=== PATIENT | female | born 1975 | race Caucasian/White ===

== ENCOUNTER 2020-12-06 12:13 | Emergency (ER) | payer OTHER, SELFPAY ==
[2020-12-06 12:20] VITALS: BP 179/109; PULSE 86; RESP 14; TEMP 36.2; O2SAT 97; BMI 36.0
--- NOTE | 2020-12-06 12:32 | HMH.EDUTC ---
[facility] [place] Clinical Impression: Exposure to COVID-19 virus Disposition: Home, Self-Care Condition on Discharge: Good Instructions: Preventing the Spread of Coronavirus Discharge Instructions Prescriptions: Ondansetron [Ondansetron Odt 8mg Tab] 8 mg PO Q8HP PRN 10 Days #30 tab PRN Reason: Nausea Transmission Status: Pending to [facility] Albuterol Sulfate [Proventil-HFA 90mcg/puff Inh] 2 puffs IH QIDP PRN 30 Days #1 inh PRN Reason: Wheezing Transmission Status: Pending to [facility] Referrals: PCP,No [Primary Care Provider] - Time of Disposition: 12:51 Medical Decision Making - Davis Inquiry Pt receiving controlled substance: No Vital Signs: 12/06/20 12:20 Temperature 97.2 F L Temperature Source Oral Pulse Rate [Right Brachial] 86 Respiratory Rate 14 Blood Pressure [Right Arm] 179/109 H Blood Pressure Mean [Right Arm] 132 Blood Pressure Source [Right Arm] Automatic Cuff Blood Pressure Position [Right Arm] Sitting 02 Sat by Pulse Oximetry 97 Oxygen Delivery Method Room Air Orders (Tests/Meds): ORDERS Category Date Time Status Covid-19 Nasal PCR Sendout P&C Routine Lab 12/06/20 12:20 Ordered [facility] - General Stated complaint: test was + at work, covid re test Time Seen by Provider: 12/06/20 12:32 - History of Present Illness Provider Complaint: Rapid COVID test + at [facility]. Needs PCR confirmation. Has headache, body aches, nausea. No fever. Onset (ago): day(s) (1) Associated symptoms: headaches, nausea/vomiting Treatments prior to arrival: none - Related Data Home Medications Medication Instructions Recorded Confirmed raNITIdine HCl [Zantac] 150 mg PO BID 02/17/18 02/17/18 Previous Rx's Medication Instructions Recorded Albuterol Sulfate [Proair Hfa 2 puffs IH Q4HP PRN #1 inh 08/23/19 90mcg/puff Inh] Azithromycin [Zithromax 250mg 250 mg PO DAILY #4 tab 08/23/19 tab] Benzonatate [Tessalon Perle 100mg 100 mg PO TIDP PRN #20 cap 08/23/19 Cap] Albuterol Sulfate [Proventil-HFA 2 puffs IH QIDP PRN 30 Days #1 inh 12/06/20 90mcg/puff Inh] Ondansetron [Ondansetron Odt 8mg 8 mg PO Q8HP PRN 10 Days #30 tab 12/06/20 Tab] Allergies Allergy/AdvReac Type Severity Reaction Status Date / Time tramadol Allergy Intermediate I-HIVES Verified 02/17/18 09:27 Penicillins Allergy Unknown Verified 02/17/18 09:27 morphine AdvReac Mild NA-NAUSEA/V Verified 02/17/18 09:27 OMITING [facility] History - Hepatitis A Screen Attestation statement:: This patient has been screened for Hepatitis A risk factors. I have reviewed the patient's past medical history: Yes Medical History: Denies:: Cancer, Diabetes Mellitus Type 1, Diabetes Mellitus Type 2 Laterality Cases: Bilateral: Tonsillectomy - Social History Smoking Status: Current every day smoker Tobacco Type: cigarettes Alcohol Intake: never Occupational Status: employed Housing: house Household Members: family ROS Obtained: Yes All systems reviewed & no additional complaints - Constitutional Constitutional: Reports body ache, Reports headache(s) - Gastrointestinal Gastrointestingal: Reports: nausea Physical Exam - General General appearance: alert, in no apparent distress - Head Head exam: normocephalic - Eye Eye exam: Present: PERRL - ENT ENT exam: Present: normal oropharynx - Respiratory Respiratory exam: Present: normal lung sounds bilaterally - Cardiovascular Cardiovascular exam: Present: regular rate, normal rhythm - Neurological Exam Neurological exam: Present: alert, oriented X3 - Psychiatric Psychiatric exam: Present: normal affect, normal mood - Skin Skin exam: Present: warm, dry, intact
[2020-12-06 12:53] VITALS: BP 179/109; PULSE 86; RESP 14; TEMP 36.2; O2SAT 97
[2020-12-07 10:54] LABS: Covid-19 Nasal PCR Sendout P&C POSITIVE
--- NOTE | 2020-12-07 10:55 | PC.NURSE ---
PATIENT NOTIFIED OF POSITIVE COVID RESULTS
== END 2020-12-06 13:00 | disposition home or self-care (01) ==
PROVIDERS: Emergency Provider Physician Assistant
DX: U07.1 COVID-19 (principal); F17.210 Nicotine dependence, cigarettes, uncomplicated
CPT/HCPCS: 99202; G0463; U0004

== ENCOUNTER 2021-02-17 17:32 | Emergency (ER) | payer OTHER, SELFPAY ==
[2021-02-17 17:52] VITALS: BP 135/90; PULSE 86; RESP 14; TEMP 36.7; O2SAT 95; BMI 36.0
--- NOTE | 2021-02-17 17:53 | XR_ITS ---
PROCEDURE: XR CHEST 2V CLINICAL HISTORY: cough/congestion COMPARISON: CR XR CHEST 2V from 08/23/2019 FINDINGS: The cardiomediastinal silhouette and pulmonary vascularity are within normal limits. The lungs are clear without infiltrates, suspicious nodules, or pleural effusions. ACDF of the lower cervical spine is visualized. Degenerative changes of the visualized thoracic spine. IMPRESSION: No acute cardiopulmonary process. Dictated by: Kelly Zazueta 02/18/2021 09:14 Kelly Zazueta in OV 02/18/2021 09:14
--- NOTE | 2021-02-17 18:02 | HMH.EDUTC ---
[facility] [place] Clinical Impression: Bronchitis Disposition: Home, Self-Care Condition on Discharge: Good Instructions: Acute Bronchitis, DI for Cough -- Adult Additional Instructions: ? Start antibiotic today. Be sure to complete entire prescription even if feeling better ? Monitor temp. Tylenol every 4 hours as needed and / or ibuprofen every 6 hours as needed ( As long as your primary care physician has told you that it ok to take both. For fever/aches/pains ER if no less than 101 despite Tylenol or Motrin ? Humidifier/vaporizer or hot steamy shower ? Inhaler every 4-6 hours as needed like we discussed. If unsure how to use it, ask pharmacist to demonstrate how. Should help open airways and improve cough, wheezing, and shortness of breath ? Mucinex during the day for your cough and cough suppressant only at night. Be sure to drink lots of water. Insurance may not cover a prescriptions for mucinex. Might be cheaper to get 400mg tablets and take 2 tablet in the morning, mid-day and evening with lots of water. You may call back tomorrow for the official reading of your xray *Start steroid tomorrow. Helps with inflammation therefore, cough and wheezing. Follow directions on the package. Reviewed side effects. Patient reports taking them before. Follow up IMMEDIATELY for new or worsening of symptoms OR no noticeable improvement over the next 48-72 hours. 911 immediately for any life threatening symptoms such as chest pain or difficulty breathing Prescriptions: Albuterol Sulfate [Proventil-HFA 90mcg/puff Inh] 1 - 2 puffs IH Q4HP PRN #1 inh PRN Reason: Shortness Of Breath Transmission Status: Received by [facility] predniSONE [Deltasone 10mg tablet] 10 mg PO BID 5 Days #10 tab Transmission Status: Received by [facility] guaiFENesin [Mucinex 600mg tablet] 600 mg PO BID PRN #20 tab.er.12h PRN Reason: Congestion Transmission Status: Received by [facility] Azithromycin [Z-Gael 250mg Tab] 250 mg PO DIRECTED #6 tab Transmission Status: Received by [facility] Referrals: PCP,No [Primary Care Provider] - As needed Forms: Work/School Release Time of Disposition: 18:59 Medical Decision Making - Davis Inquiry Pt receiving controlled substance: No Davis was queried for this patient: No Vital Signs: 03/29/21 17:52 02/17/21 18:15 Temperature 98.1 F 98 F Temperature Source Oral Pulse Rate 81 Pulse Rate [Right Radial] 86 Respiratory Rate 14 16 Blood Pressure 129/87 Blood Pressure [Right Arm] 135/90 Blood Pressure Mean [Right Arm] 105 Blood Pressure Source [Right Arm] Automatic Cuff Blood Pressure Position [Right Arm] Sitting 02 Sat by Pulse Oximetry 95 Oxygen Delivery Method Room Air Orders (Tests/Meds): ED MEDICATIONS Discontinued Medications Generic Name Dose Route Start Last Admin Trade Name Freq PRN Reason Stop Dose Admin Ceftriaxone Sodium 1 gm 02/17/21 18:57 02/17/21 18:55 Ceftriaxone 1gm Vial IM 02/17/21 18:58 1 gm ONCE ONE Administration Protocol Lidocaine HCl 0 ml 02/17/21 18:57 02/17/21 19:26 Lidocaine 1% 5ml Pf Vial IM 02/17/21 18:58 2 ml ONCE ONE Administration Methylprednisolone Sodium Succinate 125 mg 02/17/21 18:57 Methylprednisolone Sod Succ 125mg Vial IM 02/17/21 18:58 ONCE ONE ORDERS Category Date Time Status XR chest 2V Stat Exams 02/17/21 17:53 Taken - Radiology Data #1 Image(s): Chest Image Reviewed: Yes I reviewed the patient's radiology image ? bronchitis Medical Decision Narrative: Patient states that she is allergic to PCN but has taken rocephin multiple times before without reactions or complications [facility] [place] HPI - General Stated complaint: SOB,Cough,BATRES,Ears,Body Pain Time Seen by Provider: 02/17/21 18:02 Mode of Arrival: Ambulatory Source of Information: Patient Limitations: No Limitations Description of Symptoms (Recalled from Triage Doc. by RN): Pt complains of SOA,
[2021-02-17 18:15] VITALS: BP 129/87; PULSE 81; RESP 16; TEMP 36.6
== END 2021-02-17 19:17 | disposition home or self-care (01) ==
PROVIDERS: Emergency Provider Nurse Practitioner
DX: J20.9 Acute bronchitis, unspecified (principal); Z86.16 Personal history of COVID-19; F17.210 Nicotine dependence, cigarettes, uncomplicated
CPT/HCPCS: 71046; 99202; G0463

== ENCOUNTER → 2021-03-10 16:29 | Outpatient (CLI) | payer OTHER, SELFPAY | PROVIDERS: Visit Provider Nurse Practitioner Family | DX: Z02.1 Encounter for pre-employment examination (principal) ==

== ENCOUNTER 2022-06-06 19:45 | Emergency (ER) | payer OTHER, SELFPAY ==
[2022-06-06 19:45] VITALS: BP 190/106; PULSE 101; RESP 22; TEMP 36.9; O2SAT 98; BMI 36.8
--- NOTE | 2022-06-06 19:46 | ECG_ITS ---
APPROVED REPORT Exam: Resting ECG HR:90 bpm ECG Measurements Heart Rate 90 AXES SD 168 P 62 QRSd 98 QRS -8 QT 365 T 60 QTc 413 Conclusion SINUS RHYTHM NORMAL ECG UNCONFIRMED REPORT Electronically signed by : Maulik Bee MD 06/07/2022 16:24:49
[2022-06-06 20:01] LABS: Coronavirus 19, PCR Not Detected (NotDetected); Influenza A, PCR Not Detected (NotDetected); Influenza B, PCR Not Detected (NotDetected)
--- NOTE | 2022-06-06 20:09 | XR_ITS ---
PROCEDURE INFORMATION: Exam: XR Chest Exam date and time: 06/06/2022 9:28 PM Age: 46 years old Clinical indication: Pain; Chest pressure; Additional info: Dry cough, chest pain, palpitations TECHNIQUE: Imaging protocol: Radiologic exam of the chest. Views: 2 views. COMPARISON: CR XR CHEST 2V 02/17/2021 6:16 PM FINDINGS: Lungs: Unremarkable. No consolidation. Pleural spaces: Unremarkable. No pleural effusion. No pneumothorax. Heart/Mediastinum: Unremarkable. No cardiomegaly. Bones/joints: Unremarkable. IMPRESSION: No acute findings.
[2022-06-06 20:35] VITALS: BP 142/86; PULSE 92; RESP 12; O2SAT 100
[2022-06-06 20:47] LABS: Basophils % 0.4 % (0.1-2.0); Eosinophils # 0.1 K/mm3 (0.0-0.4); Eosinophils % 2.3 % (0.1-12.0); Hematocrit 34.3 % (37.0-47.0); Lymphocytes # 1.8 K/mm3 (0.7-4.5); Lymphocytes % 33.7 % (10-50); Mean Corpuscular Hemoglobin 30.4 pg (27.0-31.2); Mean Corpuscular Volume 95.1 fl (81-99); Mean Platelet Volume 8.1 fl (7.4-10.4); Monocytes # 0.2 K/mm3 (0.1-1.0); Monocytes % 4.4 % (1.7-9.3); Neutrophils # 3.2 K/mm3 (1.8-7.8); Neutrophils % 59.2 % (37.0-80.0); Platelet Count 338 K/mm3 (142-424); Red Blood Count 3.61 M/mm3 (4.20-5.40); Red Cell Distribution Width 15.6 % (11.5-17.5); White Blood Count 5.3 K/mm3 (4.8-10.8)
[2022-06-06 21:10] LABS: Alanine Aminotransferase 18 U/L (12-78); Albumin Level 3.7 g/dl (3.5-5.0); Alkaline Phosphatase 117 U/L (38-126); Anion Gap 10.7 mEq/L (5-15); Aspartate Amino Transferase 31 U/L (14-36); Bilirubin,Unconjugated 0.3 mg/dL (0.0-1.1); Blood Urea Nitrogen 6 mg/dl (7-17); Calcium 8.6 mg/dl (8.4-10.2); Carbon Dioxide 29 mmol/L (22.0-30.0); Chloride 102 mmol/L (98-107); Creatinine Clearance Estimated 193 mL/min (50-200); Estimated Glomerular Filt Rate 107 ml/min (>60); GFR (African American) 129 ML/MIN (>60); Glucose 111 mg/dl (74-100); Magnesium 1.7 mg/dl (1.6-2.3); Potassium 3.7 mmoL/L (3.5-5.1); Sodium 138 mmol/L (136-145); Total Protein,Serum 6.6 g/dl (6.3-8.2)
[2022-06-06 21:11] LABS: Bilirubin,Total < 0.1 mg/dl (0.2-1.3)
[2022-06-06 21:15] LABS: C-Reactive Protein 2.4 mg/L (0-4)
[2022-06-06 21:21] LABS: Erythrocyte Sedimentation Rate 33 mm/hr (0-20); NT Pro Brain Natriuretic Pep. 343 pg/mL (0-125)
[2022-06-06 21:28] LABS: Procalcitonin 0.034 ng/mL (0.0-2.0); Troponin I < 0.01 ng/ml (0.00-0.034)
[2022-06-06 21:50] LABS: Bilirubin,Direct < 0.1 mg/dl (0.0-0.4)
[2022-06-06 22:00] VITALS: BP 151/92; RESP 11; O2SAT 100
[2022-06-06 22:30] VITALS: BP 146/94; PULSE 85; RESP 10; O2SAT 98
--- NOTE | 2022-06-06 22:33 | PC.NURSE ---
PT UPDATED. PT STATES ALL CHEST PAIN IS RELIEVED. PT REPORTS LEFT LOWER JAW PAIN AND SWELLING AND REQUESTS MEDICATION FOR PAIN.
--- NOTE | 2022-06-06 23:26 | HMH.EDCP ---
ED Disposition Clinical Impression: Obesity (BMI 30-39.9), Tobacco use Chest pain Qualifiers: Chest pain type: precordial pain Qualified Code(s): R07.2 - Precordial pain Hypertension Qualifiers: Hypertension type: primary hypertension Qualified Code(s): I10 - Essential (primary) hypertension Disposition: Home, Self-Care Condition on Discharge: Good Instructions: DI for Chest Pain Additional Instructions: see card wednesday am and recheck if needed before wednesday Prescriptions: Aspirin [Aspirin 81mg EC Tab] 81 mg PO DAILY #30 tab Transmission Status: Pending to [facility] Bisoprolol Fumarate [Bisoprolol 5mg Tablet] 5 mg PO DAILY #30 tab Transmission Status: Pending to [facility] cephALEXin [cephALEXin 500mg capsule*] 500 mg PO TID #30 cap Transmission Status: Pending to [facility] Isosorbide Mononitrate [Imdur 30mg ER tablet] 30 mg PO DAILY #30 tab Transmission Status: Pending to [facility] Referrals: ProviderNichole MD [Primary Care Provider] - Stephon More MD [Staff Physician] - - Critical Care Critical Care Time: No Attestation: On 06/06/22, the high probability of a clinically significant, sudden or life threatening deterioration of the following system(s) required my full and direct attention, intervention and personal management. The time I documented below is in addition to time spent performing reported procedures but includes the following listed in this critical care notation. Medical Decision Making - Medical Records Medical records reviewed: Yes: I reviewed the patient's medical records. - Davis Inquiry Pt receiving controlled substance: No Vital Signs: 06/06/22 19:45 06/06/22 20:35 06/06/22 22:00 Temperature 98.5 F Temperature Source Oral Pulse Rate 92 H Pulse Rate [Right] 101 H Respiratory Rate 22 12 11 L Blood Pressure 142/86 H 151/92 H Blood Pressure [Right Arm] 190/106 H Blood Pressure Mean 111 Blood Pressure Mean [Right Arm] 134 Blood Pressure Source [Right Arm] Manual Cuff/ Auscultation 02 Sat by Pulse Oximetry 98 100 100 Oxygen Delivery Method Room Air Room Air 06/06/22 22:30 Temperature Temperature Source Pulse Rate 85 Pulse Rate [Right] Respiratory Rate 10 L Blood Pressure 146/94 H Blood Pressure [Right Arm] Blood Pressure Mean Blood Pressure Mean [Right Arm] Blood Pressure Source [Right Arm] 02 Sat by Pulse Oximetry 98 Oxygen Delivery Method Room Air - Lab Data Lab results reviewed: Yes: I reviewed the patient's lab results. Lab Results 06/06/22 19:50: SARS-CoV-2 (PCR) Not detected, Influenza A Untype (PCR) Not detected, Influenza Type B (PCR) Not detected 06/06/22 20:31: WBC 5.3, RBC 3.61 L, Hgb 11.0 L, Hct 34.3 L, MCV 95.1, MCH 30.4, MCHC 32.0, RDW 15.6, Plt Count 338, MPV 8.1, Neut % (Auto) 59.2, Lymph % (Auto) 33.7, Ray % (Auto) 4.4, Eos % (Auto) 2.3, Baso % (Auto) 0.4, Neut # (Auto) 3.2, Lymph # (Auto) 1.8, Ray # (Auto) 0.2, Eos # (Auto) 0.1, Baso # (Auto) 0.0, ESR 33 H 06/06/22 20:31: Troponin I < 0.01, C-Reactive Protein 2.4, Procalcitonin 0.034 06/06/22 20:31: Sodium 138, Potassium 3.7, Chloride 102, Carbon Dioxide 29, Anion Gap 10.7, BUN 6 L, Creatinine 0.60, Estimated Creat Clear 193, Estimated GFR 107, Est GFR ( Amer) 129, Glucose 111 H, Calcium 8.6, Magnesium 1.7, Total Bilirubin < 0.1 L, Direct Bilirubin < 0.1, Conjugated Bilirubin 0.0, Indirect Bilirubin 0.0, Unconjugated Bilirubin 0.3, AST 31, ALT 18, Alkaline Phosphatase 117, NT-Pro-B Natriuret Pep 343 H, Total Protein 6.6, Albumin 3.7 06/06/22 23:09: Troponin I < 0.01 Result diagrams: 06/06/22 20:31 06/06/22 20:31 Orders (Tests/Meds): ED MEDICATIONS Discontinued Medications Generic Name Dose Route Start Last Admin Trade Name Freq PRN Reason Stop Dose Admin Aspirin 324 mg 06/06/22 20:28 06/06/22 20:41 Aspirin 81mg Chewable Tablet PO 06/06/22 20:29 324 mg ONCE ONE Administration Cephalexin H
[2022-06-07 00:21] LABS: Troponin I < 0.01 ng/ml (0.00-0.034)
--- NOTE | 2022-06-07 00:33 | PC.NURSE ---
Dr. More paged
--- NOTE | 2022-06-07 00:35 | PC.NURSE ---
speaking with Dr. More
[2022-06-07 00:44] VITALS: BP 146/94; PULSE 85; RESP 18; TEMP 36.9; O2SAT 98
== END 2022-06-07 00:47 | disposition home or self-care (01) ==
PROVIDERS: Emergency Provider Emergency Medicine
DX: R07.2 Precordial pain (principal); E66.9 Obesity, unspecified; Z68.30 Body mass index [BMI] 30.0-30.9, adult; Z72.0 Tobacco use; I10 Essential (primary) hypertension
CPT/HCPCS: 71046; 80048; 80076; 83735; 83880; 84145; 84484; 85025; 85651; 86140; 93005; 96361; 96374; 99284; C9803; U0003; U0005

== ENCOUNTER → 2022-06-08 09:47 | Outpatient (CLI) | payer OTHER, SELFPAY | PROVIDERS: Visit Provider Physician Assistant | DX: R00.2 Palpitations (principal) | CPT/HCPCS: 93270 ==

== ENCOUNTER → 2022-06-18 06:49 | Outpatient (CLI) | payer OTHER, SELFPAY ==
--- NOTE | 2022-06-18 06:50 | CA_ITS ---
APPROVED REPORT EXAM: Comprehensive 2D, Doppler, and color-flow Echocardiogram Institutional Cook: Brittni Nash RT(R) Ht: 5 ft 7 in Wt: 255lbs BSA: 2.24 BP: 165/98 mmHg Indications: CP, smoker, palpitations, fatigue, edema, HTN, family history of HD 2D Dimensions LVOT 1.95 cm (M/F) 1.5-2.5 LA Volume 30.60 mL LA Volume Index 13.66 mL/m2 (M/F) 16-34 M-Mode Dimensions RVDd 3.38 cm (0.9-2.6) LA Diam 4.42 cm (1.9-4.0) LVDd 5.59 cm (3.5-5.7) Ao Diam 2.44 cm (2.0-3.7) LVDs 4.29 cm (3.5-5.7) IVSd 0.76 cm (0.6-1.1) PWd 0.76 cm (0.6-1.1) EF (Teich) 46.00% FS 23.30% EDV (Teich) 153.00 mL ESV (Teich) 82.60 mL LV Diastology E Decel Time 253.00 (160-240 msec) E/A Ratio 1.1 MED E' 6.40 (< 7 cm/sec) E'/MED E' Ratio 11.19 (>14) LAT E' 9.70 (<10 cm/sec) E/LAT E' Ratio 7.38 (>14) Mitral Valve MV E Max Gil. 72.00 (40-130 cm/s) MV A Velocity 63.00 (40-130 cm/s) E/A Ratio 1.14 MV Decel. Time 253.00 (160-240 ms) MV PHT 74.00 ms Tricuspid Valve TR P. Velocity 236.00 cm/s RAP Estimate 10.00 mmHg RVSP 32.20 mmHg Left Ventricle Left atrium is mildly enlarged, left ventricle is normal size, mild concentric left ventricular hypertrophy, estimated ejection fraction 55% with no regional wall motion abnormality, diastolic parameters are inconclusive. Right Ventricle Right atrium and right ventricle are mildly enlarged with normal contractility. Aortic Valve Aortic valve is minimally thickened and fibrosed there is no aortic stenosis or aortic insufficiency. Mitral Valve Mitral valve grossly normal, there is trace mitral regurgitation. Tricuspid Valve Tricuspid valve grossly normal, there is trace tricuspid regurgitation, tricuspid regurgitation jet velocity is inadequate for calculation of the right ventricular systolic pressure. Pulmonic Valve Pulmonic valve is poorly visualized. Great Vessels Aortic root is normal size. Inferior vena cava is poorly visualized. Pericardium No significant pericardial effusion noted. Conclusion 1. Mild biatrial enlargement, normal left ventricular size, mild concentric left ventricular hypertrophy, estimated ejection fraction 55% with no regional wall motion abnormality, diastolic parameters are inconclusive. 2. Trace mitral and tricuspid regurgitation. 3. No significant pericardial effusion noted. 4. Inferior vena cava is poorly visualized. Electronically signed by : Taiwo Moreno MD 06/19/2022 15:24:53
--- NOTE | 2022-06-18 06:50 | NM_ITS ---
APPROVED REPORT Exam: Nuclear Stress Test Indication: chest pain..short of breath..fatigue Patient Location: Outpatient Stress Tech: Rita PARTIDA Tech:YANIRA Romeo RT(R)(N) Ht: 5 ft 7 in Wt: 250 lbs Bra Size: 38c HR: 56 bpm BP: 121/75 mmHg BSA: 2.22 m2 TID: 1.05 BMI: 39.1 History: chest pain..short of breath..fatigue Procedure: Patient exercised on Hugo protocol 5:39 minutes and sec, resting heart rate 56 bpm, resting blood pressure 121/75 mmHg, with exercise maximum heart rate achived was 129 bpm which is 75 % of the maximum predicted heart rate and blood pressure was 179/74 mmHg. Test was stopped due to sob. Patient denied any complaint of chest pain. Patient has Adequate exercise capacity, achieved 7.0 METs of workload on treadmill, the blood pressure response to exercise was Adequate. Electrocardiogram Resting electrocardiogram shows sinus rhythm, with exercise there is less than 1.[address] segment depression noted from the baseline EKG. The EKG portion of the exercise Myoview is nondiagnostic as patient did not achieve the target heart rate. Cardiac Stress and Resting SPECT Images: Cardiac Stress and Resting SPECT images were obtained using technetium 99m Myoview 30.2 mCi stress and 10.14 mCi at rest. Gated SPECT for analysis of segmental wall motion and calculation of the ejection fraction also done. Prone images were also obtained. Cardiac stress and rest SPECT images show uniform myocardial activity without segmental perfusion abnormality, computer derived ejection fraction is 49% with no regional wall motion abnormality, right ventricle is normal size and contractility. Conclusion: 1. The EKG portion of the exercise Myoview was nondiagnostic as patient did not achieve the target heart rate, patient has adequate exercise capacity achieved 7 METS of workload on treadmill, the blood pressure response to exercise was adequate, there was no exercise-induced chest discomfort. 2. No scintigraphic evidence of reversible ischemia seen, computer derived ejection fraction is 49% with no regional wall motion abnormality, right ventricle is normal size and contractility. Electronically signed by : Taiwo Moreno MD 06/19/2022 13:03:57
--- NOTE | 2022-06-18 06:50 | CA_ITS ---
APPROVED REPORT Exam: Exercise Treadmill Technologist: Rita Logan, Ht: 5 ft 7 in Wt: 255 lbs BSA: 2.24 m2 HR: 57 bpm BP: 132/80 mmHg Rhythm: sinus heidi, otherwise normal Medical History Medical History: HTN Medications: Aspirin,,,,, Prilosec,,,,, Cephalaxin,,,,, Albuterol,,,,, BisOPROLOL Fumarate,,,,, Isosorbide Monoitrate,,,,, Cardiac Risk Factors: HTN, FHX of CAD, Smoking Stress Test Details Test: Hugo HR Resting HR: 56 bpm Max Heart Rate (APMHR): 172.655800 bpm Max HR Achieved: 129 bpm Target HR (85% APMHR): 146.031560 bpm % of APMHR: 75.00 Recovery HR: 99 bpm BP Resting BP: 121/75 mmHg Max BP: 179/74 mmHg Recovery BP: 179.0/74.0 mmHg ECG Resting ECG: sinus heidi, otherwise normal Clinical Exercise duration: 05:39 min Highest Stage Achieved: Exercise capacity: 7.0 METs Stress ECG Conclusion During hugo protocol pt exercised total of 5:39 into stage 2. Dyspnea noted, no CP. Occasional PAC and PVC. Allowing for motion artifact, ST response to exercise is within normal. Normal GXT to HR achieved. Blunted HR response due to beta charlie, last taken 8 hours ago. Myoview images reported separately. Test Summary REST . . . . . . . Sitting REST . . . . . . . Standing REST 04:37 0.0 0.0 56 . 121/ 75 . . Stage 1 01:00 10.0 1.7 89 . . . . Stage 1 02:00 10.0 1.7 102 . . . . Stage 1 03:00 10.0 1.7 107 . 164/ 80 . . Stage 2 01:00 12.0 2.5 116 . . . . Stage 2 02:00 12.0 2.5 126 . . . . Stage 2 02:39 12.0 2.5 126 . . . Stop exercise at 05:39 RECOVERY 01:00 0.0 0.0 99 . . . . RECOVERY 02:00 0.0 0.0 75 . . . . RECOVERY 03:00 0.0 0.0 68 . . . . RECOVERY 04:00 0.0 0.0 69 . 179/ 74 . . RECOVERY 05:00 0.0 0.0 69 . 179/ 74 . . RECOVERY 06:00 0.0 0.0 67 . 138/ 73 . . RECOVERY 06:19 0.0 0.0 66 . 138/ 73 . . Electronically signed by : Taiwo Moreno MD 06/19/2022 13:01:44
== END ==
PROVIDERS: Visit Provider Nurse Practitioner Family
DX: R07.89 Other chest pain (principal); R60.0 Localized edema
CPT/HCPCS: 78452; 93017; 93306; A9502

== ENCOUNTER → 2022-10-13 14:30 | Outpatient (CLI) | payer OTHER, SELFPAY ==
[2022-10-13 18:13] LABS: Basophils % 0.5 % (0.1-2.0); Eosinophils # 0.3 K/mm3 (0.0-0.4); Eosinophils % 3.8 % (0.1-12.0); Hematocrit 33.5 % (37.0-47.0); Hemoglobin 10.8 g/dL (12.2-16.2); Lymphocytes # 2.4 K/mm3 (0.7-4.5); Mean Corpuscular HGB Conc 32.2 g/dL (31.8-35.4); Mean Corpuscular Hemoglobin 31.1 pg (27.0-31.2); Mean Corpuscular Volume 96.5 fl (81-99); Mean Platelet Volume 8.9 fl (7.4-10.4); Monocytes # 0.3 K/mm3 (0.1-1.0); Monocytes % 4.2 % (1.7-9.3); Neutrophils # 3.8 K/mm3 (1.8-7.8); Neutrophils % 55.6 % (37.0-80.0); Platelet Count 350 K/mm3 (142-424); Red Blood Count 3.47 M/mm3 (4.20-5.40); Red Cell Distribution Width 15.3 % (11.5-17.5); White Blood Count 6.8 K/mm3 (4.8-10.8)
[2022-10-13 18:19] LABS: Alanine Aminotransferase 23 U/L (12-78); Albumin/Globulin Ratio 1.6 (1.1-1.8); Alkaline Phosphatase 110 U/L (38-126); Anion Gap 15.2 mEq/L (5-15); Aspartate Amino Transferase 26 U/L (14-36); Blood Urea Nitrogen 8 mg/dl (7-17); Calcium 9.4 mg/dl (8.4-10.2); Carbon Dioxide 29 mmol/L (22.0-30.0); Chloride 97 mmol/L (98-107); Estimated Glomerular Filt Rate 89 ml/min (>60); GFR (African American) 108 ML/MIN (>60); Globulin 2.5 g/dL (1.3-3.2); Glucose 112 mg/dl (74-100); Potassium 4.2 mmoL/L (3.5-5.1); Sodium 137 mmol/L (136-145); Total Protein,Serum 6.5 g/dl (6.3-8.2)
[2022-10-13 18:22] LABS: Bilirubin,Total < 0.1 mg/dl (0.2-1.3)
[2022-10-20 00:07] LABS: ALT (SGPT) P5P 21 IU/L (0-40); Alpha 2-Macroglobulins, Qn 170 mg/dL (110-276); Apolipoprotein A-1 130 mg/dL (116-209); Bilirubin, Total 0.1 mg/dL (0.0-1.2); Fibrosis Score 0.03 (0.00-0.21); GGT 17 IU/L (0-60); Haptoglobin 201 mg/dL (42-296); Necroinflammat Activity Grade A0-No activity (.); Necroinflammat Activity Score 0.06 (0.00-0.17)
[2022-10-25 21:53] LABS: HIV Screen 4th Generation wRfx Non Reactive; Hep A Ab, Total Negative
[2022-10-25 21:54] LABS: Hep B Core Ab, Total Negative; Hepatitis B Surface Antigen Negative
[2022-10-25 21:55] LABS: Hep B Surface Ab, Qual Negative; Hepatitis C Antibody 0.1
== END ==
PROVIDERS: PCP Emergency Medicine; Visit Provider Emergency Medicine
DX: Z11.4 Encounter for screening for human immunodeficiency virus [HIV]; B34.8 Other viral infections of unspecified site
CPT/HCPCS: 80053; 81596; 85025; 86703; 86704; 86706; 86708; 87340; 87380; 87522; 87902; G0432

== ENCOUNTER 2023-02-17 13:57 | Emergency (ER) | payer OTHER, SELFPAY ==
--- NOTE | 2023-02-17 14:03 | EXP.UTC ---
Discharge Plan Disposition Patient Disposition: Home, Self-Care Condition: Good Prescriptions Prescriptions: New clindamycin HCl 300 mg capsule 300 mg PO Q8H Qty: 30 0RF ibuprofen [IBU] 800 mg tablet 800 mg PO Q8HP PRN (Reason: Moderate Pain) Qty: 30 0RF ondansetron 4 mg Tablet,Disintegrating 4 mg PO Q8H PRN (Reason: Nausea) Qty: 12 0RF No Action omeprazole 40 mg capsule,delayed release(DR/EC) 40 mg PO DAILY Qty: 30 5RF isosorbide mononitrate 30 mg tablet extended release 24 hr See Rx Instructions .ROUTE .COMPLEX Qty: 30 1RF Dose Instruction: TAKE 1 TABLET BY MOUTH ONCE DAILY Rx Instructions: TAKE 1 TABLET BY MOUTH ONCE DAILY bisoprolol fumarate 10 mg tablet 10 mg PO DAILY Qty: 90 1RF hydrochlorothiazide 25 mg tablet 25 mg PO DAILY Qty: 90 1RF albuterol sulfate 200 PUFFS HFA aerosol inhaler 2 puffs IH QIDP PRN (Reason: Wheezing) 30 Days Qty: 1 0RF aspirin 81 MG tablet,delayed release (DR/EC) 81 mg PO DAILY Qty: 30 0RF Referrals Follow up/Referrals: Asim Lopez MD [Primary Care Provider] - See instructions Activity Restrictions/Add. Instructions Additional Instructions/Restrictions: Take tylenol or ibuprofen for pain or fever. Take ibuprofen for pain. I sent in a prescription to your pharmacy. Follow up with your regular doctor. GO TO THE ER FOR ANY WORSENING SYMPTOMS Follow up with your dentist. Clinical Impressions Clinical Impression: Abscess, dental Stand Alone Forms Stand Alone Forms: Work/School Release Instructions Patient Instructions: Tooth Abscess, DI for Tooth Abscess Discharge ED Provider: Clement Briscoe [facility] General Stated complaint: Possible tooth abcess Time Seen by Provider: 02/17/23 14:03 History of Present Illness Provider Complaint: She states that for the past 4 days she has had worsening dental pain and swelling of her left lower gums around a decayed tooth. Related Data Previous Rx's Medication Instructions Recorded albuterol sulfate 90 mcg/actuation 2 puffs inhalation QIDP PRN 12/06/20 aerosol inhaler Wheezing 30 days #1 inh aspirin 81 mg tablet,delayed 81 mg PO DAILY #30 tabs 06/07/22 release omeprazole 40 mg capsule,delayed 40 mg PO DAILY #30 caps 06/08/22 release isosorbide mononitrate 30 mg See Rx Instructions .Route 10/14/22 tablet,extended release 24 hr .COMPLEX #30 tabs bisoprolol fumarate 10 mg tablet 10 mg PO DAILY #90 tabs 02/17/23 clindamycin HCl 300 mg capsule 300 mg PO Q8H #30 caps 02/17/23 hydrochlorothiazide 25 mg tablet 25 mg PO DAILY #90 tabs 02/17/23 ibuprofen 800 mg tablet (IBU) 800 mg PO Q8HP PRN Moderate Pain 02/17/23 #30 tabs ondansetron 4 mg disintegrating 4 mg PO Q8H PRN Nausea #12 tabs 02/17/23 tablet Allergies Allergy/AdvReac Type Severity Reaction Status Date / Time tramadol Allergy Intermediate I-HIVES Verified 10/13/22 14:34 Penicillins Allergy Unknown Verified 10/13/22 14:34 morphine AdvReac Mild NA-NAUSEA/V Verified 10/13/22 14:34 OMITING PFSH PFSH Disclaimer: The information contained in this section may have been updated after the patient was seen, as this information can be updated by other users. Social History Smoking Status: Current every day smoker tobacco type: cigarettes packs per day: 1 alcohol intake: never current occupational status: other Travel in the last 8 weeks: Inside the [place] household members: family housing: house current occupational exposures/hazards: No ROS Obtained: Yes All systems reviewed & no additional complaints except as documented Constitutional Constitutional: Denies chills and Denies fever(s) Eyes Eyes: Denies eye discharge ENT Ears, Nose, Mouth, and Throat: Reports as per HPI, Denies dizziness, Denies otalgia and Denies sore throat Cardiovascular Cardiovascular: Denies chest pain Respiratory Respiratory: Jian
[2023-02-17 14:14] VITALS: BP 164/81; PULSE 82; RESP 18; TEMP 36.6; O2SAT 99; BMI 41.3
[2023-02-17 14:53] VITALS: BP 164/81; PULSE 82; RESP 18; TEMP 36.6; O2SAT 99
== END 2023-02-17 14:53 | disposition home or self-care (01) ==
PROVIDERS: Emergency Provider Nurse Practitioner Family; PCP Emergency Medicine
DX: R22.0 Localized swelling, mass and lump, head (principal); R68.84 Jaw pain
CPT/HCPCS: 96372; 99212; 99214; G0463; J0696

== ENCOUNTER 2023-03-06 08:08 | Emergency (ER) | payer OTHER, SELFPAY ==
[2023-03-06 08:25] VITALS: BP 149/86; PULSE 78; RESP 17; TEMP 36.9; O2SAT 98; BMI 45.3
--- NOTE | 2023-03-06 08:36 | EXP.UTC ---
Discharge Plan Disposition Patient Disposition: Home, Self-Care Condition: Good Prescriptions Prescriptions: New cephalexin 500 mg capsule 500 mg PO Q12H Qty: 20 0RF ibuprofen 800 mg tablet 800 mg PO TID PRN (Reason: pain) Qty: 30 0RF No Action isosorbide mononitrate 30 mg tablet extended release 24 hr 30 mg PO DAILY Rx Instructions: TAKE 1 TABLET BY MOUTH ONCE DAILY omeprazole 40 mg capsule,delayed release(DR/EC) 40 mg PO DAILY bisoprolol fumarate 10 mg tablet 10 mg PO DAILY hydrochlorothiazide 25 mg tablet 25 mg PO DAILY Referrals Follow up/Referrals: Asim Lopez MD [Primary Care Provider] - See instructions Clinical Impressions Clinical Impression: Abscess, dental Instructions Patient Instructions: DI for Dental Pain, DI for Tooth Decay, Tooth Abscess Discharge ED Provider: Julieta Jeff [facility] General Stated complaint: possible abcess in tooth, mouth pain Mode of Arrival: Ambulatory Source of Information: Patient Limitations: No Limitations Time Seen by Provider: 03/06/23 08:36 Description of Symptoms (Recalled from Triage Doc. by RN): PATIENT C/O POSSIBLE ABSCESS TO LEFT LOWER TOOTH X 3 DAYS HEENT Symptoms (Recalled from RN notes): Yes Resp Symptoms (Recalled from RN notes): No Skin Symptoms (Recalled from RN notes): No MS Symptoms (Recalled from RN notes): No Functional Status (Recalled from RN notes): WNL History of Present Illness Provider Complaint: Pt relates that 2 weeks ago she had swelling with an abscess and had an appointment with the dentist, however due to a family emergency she had to cancel that appointment. Pt state that the area is painful and swelling once more. Related Data Home Medications Medication Instructions Recorded Confirmed bisoprolol fumarate 10 mg tablet 10 mg PO DAILY Hypertension 03/06/23 03/06/23 hydrochlorothiazide 25 mg tablet 25 mg PO DAILY Hypertension 03/06/23 03/06/23 isosorbide mononitrate 30 mg 30 mg PO DAILY Hypertension 03/06/23 03/06/23 tablet,extended release 24 hr omeprazole 40 mg capsule,delayed 40 mg PO DAILY Acid reflux 03/06/23 03/06/23 release Previous Rx's Medication Instructions Recorded cephalexin 500 mg capsule 500 mg PO Q12H #20 caps 03/06/23 ibuprofen 800 mg tablet 800 mg PO TID PRN pain #30 tabs 03/06/23 Allergies Allergy/AdvReac Type Severity Reaction Status Date / Time tramadol Allergy Intermediate I-HIVES Verified 10/13/22 14:34 Penicillins Allergy Unknown Verified 10/13/22 14:34 morphine AdvReac Mild NA-NAUSEA/V Verified 10/13/22 14:34 OMITING Worker's Comp Is this a Worker's Comp case?: No PFS PFS Disclaimer: The information contained in this section may have been updated after the patient was seen, as this information can be updated by other users. Social History Smoking Status: Current every day smoker tobacco type: cigarettes packs per day: 1 alcohol intake: never current occupational status: other Travel in the last 8 weeks: Inside the [place] household members: family housing: house current occupational exposures/hazards: No ROS Obtained: Yes All systems reviewed & no additional complaints except as documented Constitutional Constitutional: Reports system reviewed and no additional complaints, except as documented Eyes Eyes: Reports system reviewed and no additional complaints, except as documented ENT Ears, Nose, Mouth, and Throat: Reports system reviewed and no additional complaints, except as documented and Reports dental pain Cardiovascular Cardiovascular: Reports system reviewed and no additional complaints, except as documented Respiratory Respiratory: Reports system reviewed and no additional complaints, except as documented Gastrointestinal Gastrointestingal: Reports system reviewed and no additional complaints, except as documented Genitourinary Female Genitour
[2023-03-06 08:56] VITALS: BP 149/86; PULSE 78; RESP 17; TEMP 36.9; O2SAT 98
== END 2023-03-06 09:00 | disposition home or self-care (01) ==
PROVIDERS: Emergency Provider Nurse Practitioner Family; PCP Emergency Medicine
DX: R22.0 Localized swelling, mass and lump, head (principal); R51.9 Headache, unspecified; F17.210 Nicotine dependence, cigarettes, uncomplicated
CPT/HCPCS: 99212; 99214; G0463

== ENCOUNTER → 2023-06-11 07:26 | Outpatient (CLI) | payer OTHER, SELFPAY ==
[2023-06-11 08:18] LABS: INR 0.93 (0.9-1.1); Prothrombin Time 10.1 seconds (10.1-12.5)
[2023-06-11 08:44] LABS: Chloride 102 mmol/L (98-107); Sodium 138 mmol/L (136-145)
[2023-06-11 08:47] LABS: Alanine Aminotransferase 20 U/L (12-78); Albumin Level 3.8 g/dl (3.5-5.0); Albumin/Globulin Ratio 1.4 (1.1-1.8); Alkaline Phosphatase 126 U/L (38-126); Aspartate Amino Transferase 25 U/L (14-36); Bilirubin,Total 0.3 mg/dl (0.2-1.3); Blood Urea Nitrogen 10 mg/dl (7-17); Calcium 9.2 mg/dl (8.4-10.2); Carbon Dioxide 31 mmol/L (22.0-30.0); Estimated Glomerular Filt Rate 106 ml/min (>60); GFR (African American) 129 ML/MIN (>60); Globulin 2.7 g/dL (1.3-3.2); Glucose 63 mg/dl (74-100); Total Protein,Serum 6.5 g/dl (6.3-8.2)
[2023-06-11 13:35] LABS: Basophils % 0.3 % (0.1-2.0); Eosinophils # 0.2 K/mm3 (0.0-0.4); Eosinophils % 3.5 % (0.1-12.0); Hemoglobin 10.5 g/dL (12.2-16.2); Lymphocytes # 1.9 K/mm3 (0.7-4.5); Lymphocytes % 37.5 % (10-50); Mean Corpuscular Hemoglobin 31.1 pg (27.0-31.2); Mean Corpuscular Volume 91.5 fl (81-99); Mean Platelet Volume 8.9 fl (7.4-10.4); Monocytes # 0.2 K/mm3 (0.1-1.0); Monocytes % 4.8 % (1.7-9.3); Neutrophils # 2.8 K/mm3 (1.8-7.8); Platelet Count 269 K/mm3 (142-424); Red Blood Count 3.39 M/mm3 (4.20-5.40); Red Cell Distribution Width 15.3 % (11.5-17.5); White Blood Count 5.1 K/mm3 (4.8-10.8)
[2023-06-11 15:00] LABS: Chol/HDL Ratio 5.3 (1-3.5); Cholesterol 175 mg/dl (140-200); HDL Cholesterol 33 mg/dl (40-60); Triglycerides 291 mg/dl (30-150); VLDL Cholesterol 58 mg/dL (0-40)
[2023-06-11 15:11] LABS: Direct LDL Cholesterol 93.24 mg/dL (100-129)
[2023-06-11 15:17] LABS: T4 (Thyroxine) 8.7 ug/dl (5.53-11.0)
[2023-07-03 17:19] LABS: HIV Screen 4th Generation wRfx Non Reactive; Hep A Ab, Total Negative; Hepatitis B Surface Antigen Negative
[2023-07-03 17:20] LABS: Hep B Core Ab, Total Negative; Hep B Surface Ab, Qual Reactive; Hepatitis C Antibody Non Reactive
== END ==
PROVIDERS: PCP Emergency Medicine; Visit Provider Nurse Practitioner Family
DX: Z00.00 Encounter for general adult medical examination without abnormal findings (principal); R74.8 Abnormal levels of other serum enzymes; Z20.5 Contact with and (suspected) exposure to viral hepatitis; Z11.4 Encounter for screening for human immunodeficiency virus [HIV]
CPT/HCPCS: 36415; 80053; 80061; 84436; 84443; 85025; 85610; 86703; 86704; 86706; 86708; 87340; 87380; 87522; G0432

== ENCOUNTER → 2023-06-22 16:42 | Outpatient (CLI) | payer OTHER, SELFPAY ==
--- NOTE | 2023-06-22 16:43 | MM_ITS ---
PROCEDURE INFORMATION: Exam: MG Bilateral Screening 3D Mammography Exam date and time: 06/22/2023 4:31 PM Age: 47 years old Clinical indication: Screening. No family history of breast cancer. TECHNIQUE: Imaging protocol: Bilateral Screening tomosynthesis and 2D mammography including computer-aided detection (CAD) when performed. COMPARISON: MG DMSB DIG MAMM-SCREEN JAVAN 02/05/2014 11:12 AM FINDINGS: MAMMOGRAPHY: Breast composition: The breasts are almost entirely fatty. Mass: None. Architectural distortion: None. Calcifications: No suspicious calcifications. Asymmetric density: None. Skin thickening: None. Axillary adenopathy: None. IMPRESSION: No mammographic evidence of malignancy. Annual screening is recommended unless otherwise clinically indicated. ASSESSMENT: BI-RADS Category 1: Negative
== END ==
PROVIDERS: PCP Emergency Medicine; Visit Provider Emergency Medicine
DX: Z12.31 Encounter for screening mammogram for malignant neoplasm of breast (principal)
CPT/HCPCS: 77063; 77067

== ENCOUNTER 2024-06-19 16:18 | Emergency (ER) | payer OTHER, SELFPAY ==
[2024-06-19 16:25] VITALS: BP 154/100; PULSE 100; RESP 20; TEMP 36.8; O2SAT 97; BMI 38.0; BMI 39.1
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
[2024-06-19 17:37] VITALS: BP 154/100; PULSE 100; RESP 20; TEMP 36.8; O2SAT 97
== END 2024-06-19 17:48 | disposition home or self-care (01) ==
PROVIDERS: Emergency Provider Nurse Practitioner; PCP Internal Medicine
DX: S99.921A Unspecified injury of right foot, initial encounter (principal); V49.9XXA Car occupant (driver) (passenger) injured in unspecified traffic accident, initial encounter; I10 Essential (primary) hypertension; Y92.410 Unspecified street and highway as the place of occurrence of the external cause
CPT/HCPCS: 73630; 99212; 99214; G0463